=== PATIENT | female | born 1940 | race Caucasian/White ===

== ENCOUNTER 2021-04-16 13:03 | Emergency (ER) | payer MEDICARE, OTHER ==
[2021-04-17] MEDS ORDERED: ELIQUIS5 MG PO (18:53)
[2021-04-17] MEDS ORDERED: CRESTOR20 MG PO (18:54)
[2021-04-17] MEDS ORDERED: PROTONIX40 MG PO (18:54)
[2021-04-17] MEDS ORDERED: DIGOX125 MCG PO (18:54)
[2021-04-17] MEDS ORDERED: VITAMIN D325 MCG PO (18:55)
[2021-04-17] MEDS ORDERED: MELATONIN3 MG PO (18:55)
== END 2021-04-16 16:54 | disposition other institution (70) ==
LOC: ER1 13:03
DX: U07.1 COVID-19 (principal); I11.9 Hypertensive heart disease without heart failure; E78.5 Hyperlipidemia, unspecified; Z88.0 Allergy status to penicillin; Z88.5 Allergy status to narcotic agent
CPT/HCPCS: 99283